=== PATIENT | male | born 1990 | race Caucasian/White ===

== ENCOUNTER 2020-09-10 21:51 | Emergency (ER) | payer OTHER ==
[2020-09-10 22:00] VITALS: BP 123/76; PULSE 91; TEMP 98.5; BMI 23.7
== END 2020-09-10 22:49 | disposition home or self-care (01) ==
LOC: JER 21:51
DX: R53.81 Other malaise (principal)
CPT/HCPCS: 99283-25; C9803; U0003

== ENCOUNTER 2021-06-10 00:22 | Emergency (ER) | payer OTHER ==
[2021-06-10 00:42] VITALS: BP 150/90; PULSE 74; TEMP 97.8; BMI 24.4
[2021-06-10] MEDS ORDERED: ACETAMINOPHEN 500 MG TABLET (FP) PO ONE (01:27)
[2021-06-10] MEDS ORDERED: ACETAMINOPHEN 325 MG TABLET (FP) ONE (01:46)
== END 2021-06-10 02:01 | disposition home or self-care (01) ==
LOC: JER 00:22
DX: S16.1XXA Strain of muscle, fascia and tendon at neck level, initial encounter (principal); X50.9XXA Other and unspecified overexertion or strenuous movements or postures, initial encounter
CPT/HCPCS: 99283-25

== ENCOUNTER 2021-12-24 20:54 | Emergency (ER) | payer OTHER ==
[2021-12-24 21:08] VITALS: BP 111/71; PULSE 82; TEMP 98.6; BMI 24.5
[2021-12-24] MEDS ORDERED: CEPHALEXIN MONOHYDRATE 500 MG CAPSULE (UD) PO ONE (21:22)
[2021-12-24] MEDS ORDERED: CEPHALEXIN MONOHYDRATE 500 MG CAPSULE (UD) ONE (21:27)
== END 2021-12-24 21:33 | disposition home or self-care (01) ==
LOC: FER 20:54
PROC: 0HQFXZZ Repair Right Hand Skin, External Approach (ICD-10-PCS; principal; 2021-12-24)
DX: S61.411A Laceration without foreign body of right hand, initial encounter (principal); W26.8XXA Contact with other sharp object(s), not elsewhere classified, initial encounter
CPT/HCPCS: 99283-25

== ENCOUNTER 2022-12-01 22:22 | Emergency (ER) | payer OTHER ==
[2022-12-01] MEDS ORDERED: KETOROLAC TROMETHAMINE 60 MG/2 ML VIAL IM ONE (22:38)
[2022-12-01] MEDS ORDERED: CYCLOBENZAPRINE HCL 10 MG TABLET (FP) PO ONE (22:38)
[2022-12-01 22:39] VITALS: BP 118/78; PULSE 85; RESP 16; TEMP 97.9; BMI 24.5
[2022-12-01] MEDS ORDERED: CYCLOBENZAPRINE HCL 5 MG TABLET ONE (22:40)
[2022-12-01] MEDS ORDERED: KETOROLAC TROMETHAMINE 60 MG/2 ML VIAL ONE (22:40)
== END 2022-12-01 22:56 | disposition home or self-care (01) ==
LOC: FER 22:22
PROC: 3E023GC Introduction of Other Therapeutic Substance into Muscle, Percutaneous Approach (ICD-10-PCS; principal; 2022-12-01)
DX: S16.1XXA Strain of muscle, fascia and tendon at neck level, initial encounter (principal); V43.52XA Car driver injured in collision with other type car in traffic accident, initial encounter
CPT/HCPCS: 99284-25

== ENCOUNTER 2023-02-11 11:19 | Emergency (ER) | payer OTHER ==
[2023-02-11 11:33] VITALS: BP 126/65; PULSE 87; RESP 18; TEMP 98.7; BMI 25.7
[2023-02-11] MEDS ORDERED: ACETAMINOPHEN 500 MG TABLET (FP) PO ONE (12:14)
[2023-02-11] MEDS ORDERED: DEXAMETHASONE SOD PHOSPHATE 10 MG/1 ML VIAL PO ONE (12:14)
[2023-02-11] MEDS ORDERED: CYCLOBENZAPRINE HCL 10 MG TABLET (FP) PO ONE (12:14)
[2023-02-11] MEDS ORDERED: CYCLOBENZAPRINE HCL 10 MG TABLET (FP) ONE (12:15)
[2023-02-11] MEDS ORDERED: DEXAMETHASONE SOD PHOSPHATE 10 MG/1 ML VIAL ONE (12:16)
[2023-02-11] MEDS ORDERED: ACETAMINOPHEN 500 MG TABLET (FP) ONE (12:16)
== END 2023-02-11 13:47 | disposition home or self-care (01) ==
LOC: JER 11:19
PROC: 3E033NZ Introduction of Analgesics, Hypnotics, Sedatives into Peripheral Vein, Percutaneous Approach (ICD-10-PCS; principal; 2023-02-11)
DX: M54.2 Cervicalgia (principal)
CPT/HCPCS: 87651; 99284-25; J1100

== ENCOUNTER 2024-06-29 12:09 | Emergency (ER) | payer OTHER ==
[2024-06-29 12:29] VITALS: BP 116/84; PULSE 89; RESP 18; TEMP 98.4; BMI 31.1
[2024-06-29] MEDS ORDERED: ACETAMINOPHEN 500 MG TABLET (FP) ONE (12:38)
[2024-06-29] MEDS: ACETAMINOPHEN 325 MG TABLET (FP) PO ONE (12:48)
== END 2024-06-29 13:48 | disposition home or self-care (01) ==
LOC: FER 12:09
DX: S63.635A Sprain of interphalangeal joint of left ring finger, initial encounter (principal); W01.198A Fall on same level from slipping, tripping and stumbling with subsequent striking against other object, initial encounter
CPT/HCPCS: 73140-TC-LT-FY; 99283-25